=== PATIENT | male | born 1960 | race Caucasian/White ===

== ENCOUNTER → 2021-01-16 08:11 | Outpatient (CLI) | payer OTHER, SELFPAY ==
[2021-01-16 11:18] LABS: Anion Gap 7 (5-15); BUN 16 mg/dL (7-18); BUN/Creat Ratio 17.2 RATIO (10-20); Calcium,Total 8.8 mg/dL (8.5-10.1); Chloride 107 mmol/L (98-107); Cholesterol 248 mg/dL (200); Creatinine, Serum 0.93 mg/dL (0.70-1.30); EST Glomerular Filtration Rate 88 mL/min (>60); Est Glom Filt Rate - Afr Amer 106 mL/min (>60); Glucose 100 mg/dL (74-106); High Density Lipoprotein 42 mg/dL; Potassium 4.1 mmol/L (3.5-5.1); Sodium Level 139 mmol/L (136-145); Triglycerides 171 mg/dL; Very Low Density Lipoprotein 34 mg/dL (5-40)
[2021-01-16 12:03] LABS: Vitamin D,25 Hydroxy 21.9 ng/mL
== END ==
PROVIDERS: PCP Family Medicine; Referring Provider Family Medicine; Visit Provider Family Medicine
DX: Z00.00 Encounter for general adult medical examination without abnormal findings (principal)
CPT/HCPCS: 36415; 80048; 80061; 82306; 84153; 84403; G0103

== ENCOUNTER 2021-10-27 15:14 | Outpatient (CLI) | payer OTHER, SELFPAY ==
[2021-10-27 19:23] LABS: Anion Gap 6 (5-15); BUN 12 mg/dL (7-18); BUN/Creat Ratio 12.8 RATIO (10-20); Calcium,Total 9.4 mg/dL (8.5-10.1); Chloride 106 mmol/L (98-107); Creatinine, Serum 0.94 mg/dL (0.70-1.30); EST Glomerular Filtration Rate 86 mL/min (>60); Est Glom Filt Rate - Afr Amer 104 mL/min (>60); Glucose 94 mg/dL (74-106); Potassium 4.1 mmol/L (3.5-5.1); Sodium Level 139 mmol/L (136-145)
== END 2021-10-27 23:59 | disposition home or self-care (01) ==
LOC: MFPLAB 15:16
PROVIDERS: PCP Family Medicine; Visit Provider Family Medicine
DX: I10 Essential (primary) hypertension (principal); R79.89 Other specified abnormal findings of blood chemistry
CPT/HCPCS: 36415; 80048; 84403

== ENCOUNTER 2021-11-12 10:04 | Outpatient (CLI) | payer OTHER, SELFPAY ==
--- NOTE | 2021-11-12 | LES_PTH ---
PATIENT: SABINA JOHNSON LOC: [facility] U#:[id number] AGE/SX: 61/M ROOM: RE11/12/[address]: Dr. Teddy Palacios MD : 1960 BED: DIS: 11/12/2021 SPEC #: [id number] RECD: 11/12/21 10:46 STATUS: ANDREA RIVERA #: [id number] RITESH: 11/12/21 00:[address]: Teddy Palacios DEPT: SURGICAL PATHOLOGY RECD BY: Romulo Glass ENTERED: 11/12/21 10:47 SP TYPE: Lesion OTHR DR: Dr. Damion Lopez MD Tissues: Skin of eyelid, NOS Procedures: Surgery Specimen Level IV HEADER OPERATION: Removal of lesion OD/RLL PRE-OP DIAGNOSIS: Growth x1 month, elevated, nontender TISSUE SUBMITTED: Lesion OD/RLL MICROSCOPIC DIAGNOSIS Right lower eyelid lesion, biopsy: Acute and chronic inflammation. Negative for malignancy. See comment. SJ:foster 11/13/2021 COMMENT Focal changes suggestive of granuloma are noted. The lesion may represent chalazion. Overlying epithelium is not present. Clinical correlation and appropriate follow up are necessary. MICROSCOPIC DESCRIPTION Slides are reviewed. GROSS DESCRIPTION Received in fixative is one container labeled with the patient's name and designated right lower eyelid. The specimen consists of a round piece of bello-white skin measuring 0.5 x 0.4 x 0.1 cm. The entire specimen is submitted in one cassette. / LENA:foster 11/12/2021 TC:5 CPT: 62541
== END 2021-11-12 23:59 | disposition home or self-care (01) ==
LOC: LABSPEC 10:06
PROVIDERS: PCP Family Medicine; Visit Provider Ophthalmology
DX: H02.9 Unspecified disorder of eyelid (principal)
CPT/HCPCS: 88305

== ENCOUNTER 2021-12-12 08:47 | Day surgery (SDC) | payer OTHER, SELFPAY ==
[2021-12-12] MEDS: Lactated Ringers 1,000 ML 15 ML IV (09:10)
[2021-12-12 09:16] VITALS: BP 154/86; PULSE 84; RESP 17; TEMP 36.6; O2SAT 97; BMI 25.7
--- NOTE | 2021-12-12 10:27 | HP.PCM_ITS ---
HPI - General HPI Narrative SABINA JOHNSON, is a 61 M who presents for screening colonoscopy. Patient has never had a colonoscopy in the past. He reports no abdominal pain or blood in his stool. He denies family history of colon cancer. [facility] Medical History Alcohol use COPD (chronic obstructive pulmonary disease) Former smoker High cholesterol Hypertension Wears dentures Home Medications lisinopril 5 mg PO QHS 12/09/21 [History Last Taken Unknown] rosuvastatin [Crestor] 5 mg PO QHS 12/09/21 [History Last Taken Unknown] Allergy/AdvReac Type Severity Reaction Status Date / Time prednisone Allergy BLISTERS Verified 12/12/21 09:15 IN MOUTH Surgical History No history of previous surgery Social History Smoking Status: Former smoker Past Medical/Surgical History Planned Operation Planned Operative Procedure/s: CSCOPE OPEN ACCESS Previous Hospitalizations/Surgeries HX Hospitalizations: No Any Problems With Anesthesia: No (NO SURGERY) You/Your Family Experience Fever (Hyperthermia) With Anes: No Cholinesterase deficiency: No Cardiovascular Hx Hypertension: Yes (CONTROLLED WITH MED) Respiratory Hx Sleep Apnea: No Hx Respiratory Tract Infection/Cold (presently): No Do You Snore Loudly (louder than talking or can be heard): No Do You Often Feel Tired/ Fatigued/ Sleepy Dring Daytime?: No Has Anyone Observed You Stop Breathing During Sleep?: No Result (for STOP score): Negative Smoking Status: Former smoker Neurological Does patient have nerve stimulator: No Reproduction : No Miscellaneous Recent Exposure to Contagious Disease: No Allergies prednisone Allergy (Verified 12/12/21 09:15) BLISTERS IN MOUTH Discharge Is Pt Admitted From a Assisted, or a Retirement: No After D/C, Where Do you Plan to Go: Return Home Vital Signs Vital Signs Vital Signs: 12/12/21 09:16 Temperature 97.8 F Temperature Source Temporal Pulse Rate 84 Respiratory Rate 17 Respiratory Pattern Normal Blood Pressure 154/86 H Blood Pressure Mean 108 Blood Pressure Source Monitor Blood Pressure Position Semi-Fowlers Blood Pressure Location Left Arm Pulse Ox 97 Oxygen Delivery Method Room Air Weight Weight: 174 lb 2.643 oz Body Mass Index (BMI) 25.7 Physical Exam Const alert and oriented x3 Resp normal respiratory effort and normal air movement Cardio regular rate and regular rhythm GI soft to palpation, non-tender and non-distended Assessment & Plan Assessment/Plan (1) Encounter for screening for malignant neoplasm of colon: PLAN: I explained endoscopy in detail to the patient. I explained the risks including but not limited to stroke or heart attack with anesthesia, perforation of the GI tract, bleeding, infection. I explained that any of these could necessitate further emergency surgery. The patient understands and all questions were answered sufficiently. The patient wishes to proceed with procedure. Doug Loja MD Pager: [facility] [address] [place] [address], [address] [place] [address] Office: Surgery Risks - Colonoscopy Risks Include but are not Limited To: Risks include but are not limited to: Bleeding, perforation requiring further surgery, inability to complete colonoscopy requiring barium enema.
--- NOTE | 2021-12-12 10:59 | OP.COLON_ITS ---
Patient Name: Konstantin Gomez Procedure Date: 12/12/2021 10:39 AM Date of : 1960 Age: 61 Procedure: Colonoscopy Indications: Screening for colorectal malignant neoplasm Providers: Doug Loja MD Referring MD: Doug Loja MD Medicines: Monitored Anesthesia Care Patient Profile: This is a 61 year old male. Refer to note in patient chart for documentation of history and physical. Last Colonoscopy: none. The patient's first colonoscopy is today. Complications: No immediate complications. Procedure: Pre-Anesthesia Assessment: - Prior to the procedure, a History and Physical was performed, and patient medications and allergies were reviewed. The patient's tolerance of previous anesthesia was also reviewed. The risks and benefits of the procedure and the sedation options and risks were discussed with the patient. All questions were answered, and informed consent was obtained. Prior Anticoagulants: The patient has taken no previous anticoagulant or antiplatelet agents. After reviewing the risks and benefits, the patient was deemed in satisfactory condition to undergo the procedure. After I obtained informed consent, the scope was passed under direct vision. Throughout the procedure, the patient's blood pressure, pulse, and oxygen saturations were monitored continuously. The Colonoscope was introduced through the anus and advanced to the cecum, identified by appendiceal orifice and ileocecal valve. The colonoscopy was performed without difficulty. The patient tolerated the procedure well. The quality of the bowel preparation was good. Scope In: 10:47:18 AM Scope Withdrawal Time 0 hours 6 minutes 3 seconds Scope Out: 10:56:39 AM Total Procedure Duration Time 0 hours 9 minutes 21 seconds Findings: The entire examined colon appeared normal on direct and retroflexion views. Impression: - The entire examined colon is normal on direct and retroflexion views. - No specimens collected. Recommendation: - Discharge patient to home. - Resume previous diet. - Continue present medications. - Repeat colonoscopy in 10 years for screening purposes. Procedure Code(s): --- Professional --- 54317, Colonoscopy, flexible; diagnostic, including collection of specimen(s) by brushing or washing, when performed (separate procedure) Diagnosis Code(s): --- Professional --- Z12.11, Encounter for screening for malignant neoplasm of colon CPT copyright 2017 [employer]. All rights reserved. The codes documented in this report are preliminary and upon orthopedic coder review may be revised to meet current compliance requirements. Doug Loja MD 12/12/2021 10:58:31 AM This report has been signed electronically. Number of Addenda: 0 Note Initiated On: 12/12/2021 10:39 AM
[2021-12-12 11:00] VITALS: BP 111/71; BP 154/86; PULSE 73; RESP 16; TEMP 36.4; O2SAT 93
--- NOTE | 2021-12-12 11:00 | OP.CCLET_ITS ---
12/12/2021 Damion Lopez MD [address] [phone] Re : Colonoscopy procedure for Konstantin Gomezenter Dear Dr. Lopez This procedure was performed on Sunday, December 12, 2021. My impressions and recommendations are as follows: Impressions : - The entire examined colon is normal on direct and retroflexion views. - No specimens collected. Recommendations : - Discharge patient to home. - Resume previous diet. - Continue present medications. - Repeat colonoscopy in 10 years for screening purposes. My findings are described in the full procedure note, which is enclosed. If I can be of further assistance, please feel free to contact me at Doctor phone number(s): , Work: . Sincerely, Doug Loja MD 12/12/2021 10:58:31 AM This report has been signed electronically.
[2021-12-12 11:05] VITALS: BP 147/76; BP 154/86; PULSE 78; RESP 16; O2SAT 94
[2021-12-12 11:10] VITALS: BP 123/90; BP 154/86; PULSE 76; RESP 16; O2SAT 96
[2021-12-12 11:15] VITALS: BP 137/92; BP 154/86; PULSE 69; RESP 16; TEMP 36.6; O2SAT 98
[2021-12-12 11:23] VITALS: BP 154/86
== END 2021-12-12 11:29 | disposition home or self-care (01) ==
LOC: EN 08:49 → AC 08:51
PROVIDERS: PCP Family Medicine; Referring Provider Surgery; Visit Provider Surgery
PROC: 0DJD8ZZ Inspection of Lower Intestinal Tract, Via Natural or Artificial Opening Endoscopic (ICD-10-PCS; CPT 45378; principal; 2021-12-12 09:55)
DX: Z12.11 Encounter for screening for malignant neoplasm of colon (principal); J44.9 Chronic obstructive pulmonary disease, unspecified; E78.00 Pure hypercholesterolemia, unspecified; I10 Essential (primary) hypertension
CPT/HCPCS: 45378; 87426; C9803; J7120; J2405

== ENCOUNTER → 2022-05-08 | Outpatient (CLI) | payer OTHER, SELFPAY ==
[2022-05-08 10:22] LABS: Anion Gap 7 (5-15); BUN 16 mg/dL (7-18); Calcium,Total 8.7 mg/dL (8.5-10.1); Chloride 102 mmol/L (98-107); Cholesterol 130 mg/dL (200); EST Glomerular Filtration Rate 80 mL/min (>60); Est Glom Filt Rate - Afr Amer 97 mL/min (>60); Glucose 84 mg/dL (74-106); High Density Lipoprotein 51 mg/dL; Potassium 3.9 mmol/L (3.5-5.1); Sodium Level 138 mmol/L (136-145); Triglycerides 110 mg/dL; Very Low Density Lipoprotein 22 mg/dL (5-40)
== END | disposition home or self-care (01) ==
LOC: MFPLAB 08:53
PROVIDERS: PCP Family Medicine; Referring Provider Family Medicine; Visit Provider Family Medicine
DX: I10 Essential (primary) hypertension (principal); R79.89 Other specified abnormal findings of blood chemistry
CPT/HCPCS: 36415; 80048; 80061; 84403

== ENCOUNTER → 2023-12-01 | Outpatient (CLI) | payer BC, MEDICARE, SELFPAY ==
[2023-12-01 15:30] LABS: ALB/GLOB Ratio 1.2 RATIO (0.9-2.4); AST(SGOT) 48 U/L (15-37); Alanine Aminotransfer ALT/SGPT 136 U/L (16-61); Albumin, Serum 4.2 g/dL (3.2-5.0); Alkaline Phosphatase 86 U/L (45-117); Anion Gap 5 (5-15); BUN 14 mg/dL (7-18); BUN/Creat Ratio 14.6 RATIO (10-20); Calcium,Total 9.2 mg/dL (8.5-10.1); Chloride 105 mmol/L (98-107); Cholesterol 184 mg/dL (200); Creatinine, Serum 0.96 mg/dL (0.70-1.30); EST Glomerular Filtration Rate 84 mL/min (>60); Est Glom Filt Rate - Afr Amer 101 mL/min (>60); Globulin 3.5 g/dL (2.2-4.2); Glucose 104 mg/dL (74-106); High Density Lipoprotein 54 mg/dL; Potassium 4.2 mmol/L (3.5-5.1); Protein, Total 7.7 g/dL (6.4-8.2); Sodium Level 137 mmol/L (136-145); Triglycerides 189 mg/dL; Very Low Density Lipoprotein 38 mg/dL (5-40)
== END | disposition home or self-care (01) ==
PROVIDERS: PCP Family Medicine; Visit Provider Family Medicine
DX: E78.5 Hyperlipidemia, unspecified (principal)
CPT/HCPCS: 36415; 80053; 80061

== ENCOUNTER → 2024-05-29 | Outpatient (CLI) | payer MEDICARE, SELFPAY ==
[2024-05-29 11:39] LABS: ALB/GLOB Ratio 1.1 RATIO (0.9-2.4); AST(SGOT) 32 U/L (15-37); Alanine Aminotransfer ALT/SGPT 85 U/L (16-61); Albumin, Serum 3.9 g/dL (3.2-5.0); Alkaline Phosphatase 82 U/L (45-117); Anion Gap 5 (5-15); BUN 13 mg/dL (7-18); Chloride 106 mmol/L (98-107); Cholesterol 251 mg/dL (200); Creatinine, Serum 0.93 mg/dL (0.70-1.30); EST Glomerular Filtration Rate 86 mL/min (>60); Est Glom Filt Rate - Afr Amer 104 mL/min (>60); Globulin 3.4 g/dL (2.2-4.2); Glucose 121 mg/dL (74-106); High Density Lipoprotein 52 mg/dL; Potassium 4.2 mmol/L (3.5-5.1); Protein, Total 7.3 g/dL (6.4-8.2); Sodium Level 138 mmol/L (136-145); Triglycerides 187 mg/dL; Very Low Density Lipoprotein 37 mg/dL (5-40)
== END | disposition home or self-care (01) ==
LOC: MTLAB 08:40
PROVIDERS: PCP Family Medicine; Referring Provider Family Medicine; Visit Provider Family Medicine
DX: E78.5 Hyperlipidemia, unspecified (principal)
CPT/HCPCS: 36415; 80053; 80061

== ENCOUNTER → 2024-09-07 | Outpatient (CLI) | payer MEDICARE, SELFPAY ==
[2024-09-07 18:14] LABS: Anion Gap 5 (5-15); BUN 14 mg/dL (7-18); BUN/Creat Ratio 14.7 RATIO (10-20); Chloride 104 mmol/L (98-107); Cholesterol 163 mg/dL (200); Creatinine, Serum 0.95 mg/dL (0.70-1.30); EST Glomerular Filtration Rate 84 mL/min (>60); Est Glom Filt Rate - Afr Amer 101 mL/min (>60); Glucose 93 mg/dL (74-106); High Density Lipoprotein 58 mg/dL; PSA,Total - Annual Screen 0.96 ng/mL (0.00-4.00); Potassium 4.1 mmol/L (3.5-5.1); Sodium Level 138 mmol/L (136-145); Triglycerides 141 mg/dL; Very Low Density Lipoprotein 28 mg/dL (5-40)
== END | disposition home or self-care (01) ==
LOC: MFPLAB 15:18
PROVIDERS: PCP Family Medicine; Referring Provider Family Medicine; Visit Provider Family Medicine
DX: E78.5 Hyperlipidemia, unspecified (principal); Z12.5 Encounter for screening for malignant neoplasm of prostate
CPT/HCPCS: 36415; 80048; 80061; 84153; G0103

== ENCOUNTER → 2024-11-27 | Outpatient (CLI) | payer MEDICARE, SELFPAY | END | disposition home or self-care (01) | LOC: MFPLAB 08:39 | PROVIDERS: PCP Family Medicine; Referring Provider Family Medicine; Visit Provider Family Medicine | DX: I10 Essential (primary) hypertension (principal) ==

== ENCOUNTER → 2025-02-05 | Outpatient (CLI) | payer MEDICARE, SELFPAY ==
--- NOTE | 2025-02-05 11:07 | RAD_ITS ---
PROCEDURE: CHEST PA AND LATERAL 02/05/2025 REASON FOR EXAM: CHEST PAIN, LEFT ANTERIOR RIB PAIN, NO INJURY TECHNIQUE: CHEST PA AND LATERAL COMPARISON: None. FINDINGS: The lungs are clear. There is no lobar consolidation or pleural effusion. The heart size is normal. There is calcific vascular disease of the thoracic aorta. The upper abdominal bowel gas pattern is normal. There are no significant bony abnormalities of the chest. RAD/Chest PA and Lateral IMPRESSION: No evidence of acute cardiopulmonary pathology. Other findings as noted. Reading Location: [id number]
[2025-02-05 16:05] LABS: Absolute Neutrophil Count 3.9 X10^3/uL (2.0-7.7); Basophil# 0.08 X10^3/uL; Basophil% 1.3 % (0-1); Hematocrit 41.1 % (40-54); Lymphocyte % 16.6 % (19-41); Mean Corp Hgb Conc 34.1 g/dL (32-36); Mean Corpuscular Hgb 31.3 pg (27.0-32.0); Mean Corpuscular Volume 91.7 fL (80-94); Mean Platelet Vol. 11.4 fl (6.2-12.0); Monocyte% 11.6 % (0-10); NRBC Flagged by Analyzer 0 % (0-5); Neutrophil # 3.92 X10^3/uL (2.7-7.7); Platelet Count 155 K/mm3 (150-450); RBC Distribution Width CV 12.3 % (11.6-14.6); RBC Distribution Width SD 41.1 fl (35.1-43.9); Red Blood Count 4.48 M/mm3 (4.6-6.2)
[2025-02-05 16:27] LABS: Anion Gap 11 (5-15); BUN 15 mg/dL (4-19); BUN/Creat Ratio 17.4 RATIO (10-20); Calcium,Total 8.8 mg/dL (7.6-11.0); Carbon Dioxide 21.8 mmol/L (21.0-32.0); Chloride 106 mmol/L (98-108); Creatinine, Serum 0.89 mg/dL (0.70-1.20); EST Glomerular Filtration Rate 95 (>60); Glucose 150 mg/dL (70-99); Potassium 4.3 mmol/L (3.3-5.1); Sodium Level 139 mmol/L (133-145)
[2025-02-05 16:28] LABS: Troponin T High Sensitivity 7 ng/L (<=22)
[2025-02-05 18:49] LABS: D-Dimer Quantitative (DVT/PE) 0.72 FEU/ug/m (0.27-0.49)
== END | disposition home or self-care (01) ==
LOC: MTLAB 11:05
PROVIDERS: PCP Family Medicine; Referring Provider Family Medicine; Visit Provider Family Medicine
DX: R07.9 Chest pain, unspecified (principal)
CPT/HCPCS: 36415; 71046; 80048; 84484; 85025; 85379

== ENCOUNTER → 2025-02-06 | Outpatient (CLI) | payer MEDICARE, SELFPAY ==
--- NOTE | 2025-02-06 14:53 | CT_ITS ---
PROCEDURE: CHEST WITH CONTRAST 02/06/2025 REASON FOR EXAM: CHEST PAIN TECHNIQUE: CHEST WITH CONTRAST Coronal and Sagittal reconstruction series were provided. CONTRAST: 100 mL of Isovue 370 One or more dose reduction techniques were used (e.g., Automated exposure control, adjustment of the mA and/or kV according to patient size, use of iterative reconstruction technique). RADIATION DOSE SUMMARY: DLP: 436 mGycm COMPARISON: None FINDINGS: Lymph nodes: No significant lymphadenopathy. Heart and Vasculature: No significant pericardial effusion. Heart size is within normal limits. Mild coronary atherosclerosis. Lungs and Airways: Scattered peripheral tree-in-bud densities and endobronchial thickening may reflect atypical pneumonia and/or aspiration. No large focal consolidations. 6 mm nodule within the right lower lobe best seen on series 2, image 80. 5 mm nodule in the right lower lobe best seen on series 2, image 85. 3 mm nodule within the right middle lobe best seen on series 2, image 62. Pleura: No pleural effusion or pneumothorax. Upper Abdomen: Hepatic steatosis. Bones: No acute fractures. CT/Chest WITH Contrast IMPRESSION: Scattered peripheral tree-in-bud densities and endobronchial thickening may ref lect atypical pneumonia and/or aspiration. No large focal consolidations. 6 mm nodule within the right lower lobe best seen on series 2, image 80. 5 mm nodule in the right lower lobe best seen on series 2, image 85. 3 mm nodule within the right middle lobe best seen on series 2, image 62. Consider follow-up CT in 3-6 months per Fleischner guidelines. Reading Location: [id number]
== END | disposition home or self-care (01) ==
LOC: CT 14:51
PROVIDERS: PCP Family Medicine; Referring Provider Family Medicine; Visit Provider Family Medicine
DX: R07.9 Chest pain, unspecified (principal)
CPT/HCPCS: 71260; Q9967

== ENCOUNTER → 2025-03-21 | Outpatient (CLI) | payer MEDICARE, SELFPAY ==
--- NOTE | 2025-03-21 10:57 | RAD_ITS ---
PROCEDURE: CHEST PA AND LATERAL 03/21/2025 REASON FOR EXAM: CHEST PAIN TECHNIQUE: CHEST PA AND LATERAL COMPARISON: None FINDINGS: Hardware: None Heart: The heart size is normal. Mediastinum: The mediastinal contour is unremarkable. Lungs: Lungs are mildly hyperexpanded with chronic interstitial changes, no superimposed acute pulmonary process. Bones: Degenerative changes are identified within the thoracic spine. RAD/Chest PA and Lateral IMPRESSION: Mildly hyperexpanded lungs with chronic interstitial changes, no superimposed a cute pulmonary process Reading Location: [id number]
[2025-03-21 12:29] LABS: Hematocrit 46.0 % (40-54); Hemoglobin 15.6 g/dL (13.0-16.5); Immature Granulocytes Count 0.040 X10^3/uL (0.0-0.0); Mean Corp Hgb Conc 33.9 g/dL (32-36); Mean Corpuscular Volume 92.4 fL (80-94); Mean Platelet Vol. 10.9 fl (6.2-12.0); NRBC Flagged by Analyzer 0 % (0-5); Platelet Count 167 K/mm3 (150-450); RBC Distribution Width CV 12.4 % (11.6-14.6); RBC Distribution Width SD 42.4 fl (35.1-43.9); Red Blood Count 4.98 M/mm3 (4.6-6.2); White Blood Count 7.3 K/mm3 (4.4-11.0)
[2025-03-21 13:29] LABS: Anion Gap 13 (5-15); BUN 13 mg/dL (4-19); BUN/Creat Ratio 14.8 RATIO (10-20); Calcium,Total 9.7 mg/dL (7.6-11.0); Carbon Dioxide 22.7 mmol/L (21.0-32.0); Chloride 102 mmol/L (98-108); Glucose 121 mg/dL (70-99); Potassium 4.6 mmol/L (3.3-5.1)
== END | disposition home or self-care (01) ==
PROVIDERS: PCP Family Medicine; Referring Provider Family Medicine; Visit Provider Family Medicine
DX: R07.9 Chest pain, unspecified (principal)
CPT/HCPCS: 36415; 71046; 80048; 85025